=== PATIENT | male | born 1990 | race Caucasian/White ===

== ENCOUNTER 2017-07-03 01:44 | Emergency (ER) | payer BC ==
[~2017-07-03] VITALS: Ht 175.3 cm; Wt 70.8 kg
[2017-07-03] MEDS ORDERED: ONDANSETRON HCL/PF 4 MG/2 ML VIAL ONE (01:48)
[2017-07-03] MEDS ORDERED: MORPHINE SULFATE INJ 4 MG/ML DISP.SYRIN ONE (01:48)
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
--- NOTE | 2017-07-03 01:52 | NUR ---
MD MANLEY AT BED SIDE FOR EVAL
--- NOTE | 2017-07-03 01:54 | NUR ---
URINE SAMPLE OBATINED AND SENT TO LAB
--- NOTE | 2017-07-03 01:55 | NUR ---
20G RIGHT HAND IV STARTED, BLOOD SAMPLE OBTAINED AND SENT TO LAB. MEDICATED PT ORDERED
[2017-07-03] MEDS ORDERED: IV NS 0.9% 1,000 ML BAG IV ONE (02:00)
[2017-07-03] MEDS ORDERED: MORPHINE SULFATE INJ 2 MG/ML DISP.SYRIN IV ONE (02:00)
[2017-07-03] MEDS ORDERED: ONDANSETRON HCL/PF 4 MG/2 ML VIAL IVP ONE (02:00)
--- NOTE | 2017-07-03 02:03 | NUR ---
PT TRANSPORTED TO CT VIA GURNEY BY RADIOLOGY TEAM
[2017-07-03 02:05] LABS: APPEARANCE,URINE SL CLOUDY (CLEAR); BASOPHILS # (AUTO) 0.1 /CMM (0.0-0.2); BASOPHILS % (AUTO) 0.8 % (0.0-2.0); BILIRUBIN,URINE NEGATIVE (NEGATIVE); BLOOD, URINE 3+ Ery/uL (NEGATIVE); COLOR,URINE YELLOW (YELLOW); EOSINOPHILS # (AUTO) 0.2 /CMM (0.0-0.7); EOSINOPHILS % (AUTO) 2.2 % (0.0-6.0); HEMATOCRIT 42 % (39-51); HEMOGLOBIN 14.3 g/dL (13.5-17.5); KETONES,URINE NEGATIVE (NEGATIVE); LEUKOCYTE ESTERASE ,URINE NEGATIVE (NEGATIVE); LYMPHOCYTES # (AUTO) 3.8 /CMM (0.8-4.8); MEAN CORPUSCULAR HEMOGLOBIN 32 PG (26.0-33.0); MEAN CORPUSCULAR HGB CONC 34 g/dl (31.0-36.0); MEAN CORPUSCULAR VOLUME 93 fL (80-96); MONOCYTES # (AUTO) 0.7 /CMM (0.1-1.30); MONOCYTES % (AUTO) 7.6 % (2.0-12.0); NEUTROPHILS # (AUTO) 4.9 /CMM (1.8-8.9); NEUTROPHILS % (AUTO) 50.4 % (43.0-81.0); NITRITE, URINE NEGATIVE (NEGATIVE); PLATELET COUNT (AUTO) 264 /CMM (150-450); PROTEIN,URINE NEGATIVE (NEGATIVE); RED BLOOD CELL COUNT(AUTO) 4.51 MIL/uL (4.5-6.0); UGLUCOSE NEGATIVE (NEGATIVE); UROBILINOGEN,URINE 0.2 EU/dL (0.2); WHITE BLOOD COUNT (AUTO) 9.7 K/uL (4.3-11.0)
[2017-07-03 02:19] LABS: BACTERIA,URINE None seen /HPF (None Seen); MUCUS,URINE Few /LPF (None Seen); RBC,URINE 81-100 /HPF (0-2); SQUAMOUS EPITHELIAL CELL,UR Rare /HPF (None Seen); WBC,URINE NONE SEEN /HPF (0-3)
[2017-07-03 02:32] LABS: ALBUMIN 4.2 g/dL (3.4-5.0); BILIRUBIN,DIRECT 0.1 mg/dL (0.0-0.2); BILIRUBIN,TOTAL 0.4 mg/dL (0.2-1.0); CALCIUM, SERUM 9.2 mg/dL (8.5-10.1); CREATININE 0.9 mg/dL (0.6-1.3); POTASSIUM 4.2 mmol/L (3.5-5.1)
[2017-07-03] MEDS ORDERED: KETOROLAC TROMETHAMINE INJ 30 MG/ML VIAL IV ONE (03:00)
[2017-07-03] MEDS ORDERED: KETOROLAC TROMETHAMINE INJ 30 MG/ML VIAL ONE (03:01)
[2017-07-03 03:32] VITALS: BP 125/89
--- NOTE | 2017-07-03 03:33 | NUR ---
Patient discharged to home in stable condition. Written and verbal after care instructions given. Patient verbalizes understanding of instruction.IV removed. Catheter intact and site benign. Pressure and 4x4 applied to site. No bleeding noted. PT ambulatory with a steady gait VITAL SIGNS WITHIN NORMAL LIMITS.
== END 2017-07-03 03:32 | disposition home or self-care (01) ==
LOC: ER 01:46
DX: N20.0 Calculus of kidney (principal); K85.90 Acute pancreatitis without necrosis or infection, unspecified; Z87.442 Personal history of urinary calculi
CPT/HCPCS: 36415; 71250-TC; 80048-TC; 80076-TC; 81000-TC; 83690-TC; 85025-TC; A4606; J1885; J2270; J2405; J7030; Z7610

== ENCOUNTER 2021-01-16 11:56 | Emergency (ER) | payer SELFPAY ==
[~2021-01-16] VITALS: Ht 182.9 cm; Wt 81.6 kg
[2021-01-16] MEDS ORDERED: FENTANYL PF 100MCG/2ML AMPUL ONE ×2 (12:20→14:16)
[2021-01-16] MEDS ORDERED: FENTANYL PF 100MCG/2ML AMPUL IV ONE ×2 (12:30→14:00)
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
--- NOTE | 2021-01-16 14:32 | NUR ---
Patient discharged to home in stable condition. Written and verbal after care instructions given. Patient verbalizes understanding of instruction. Pt ambulatory with a steady gait
[2021-01-16] MEDS ORDERED: HYDR-4303 PO (14:42)
[2021-01-16 15:34] VITALS: BP 133/73
== END 2021-01-16 15:35 | disposition home or self-care (01) ==
LOC: ER 12:12
DX: S52.592A Other fractures of lower end of left radius, initial encounter for closed fracture (principal); S52.612A Displaced fracture of left ulna styloid process, initial encounter for closed fracture; Z87.442 Personal history of urinary calculi; W18.39XA Other fall on same level, initial encounter; Y93.89 Activity, other specified; Y92.89 Other specified places as the place of occurrence of the external cause; Y99.8 Other external cause status
CPT/HCPCS: 29125; 73110; 96374; 96376; 99284; J3010 ×2

== ENCOUNTER 2021-01-23 10:00 | Outpatient (CLI) | payer SELFPAY ==
[~2021-01-23 10:00] MED LIST: HYDR-4303 PO
[2021-01-24] MEDS ORDERED: HYDR-3972 PO (13:58)
[2021-01-25] MEDS ORDERED: BUPIVACAINE 0.5 % PF 150 MG/30 ML VIAL ONE (10:54)
[2021-01-25] MEDS ORDERED: BACITRACIN 50000 UNITS/VIAL ONE (10:55)
== END 2021-01-23 23:59 | disposition home or self-care (01) ==
LOC: LAB 10:00
PROVIDERS: ATTEND Specialist
DX: Z01.812 Encounter for preprocedural laboratory examination (principal); Z20.822 Contact with and (suspected) exposure to COVID-19
CPT/HCPCS: 87426; C9803; U0003; J3490

== ENCOUNTER 2021-01-24 10:39 | Inpatient (IN) | payer MEDICAID ==
[~2021-01-24] VITALS: Ht 182.9 cm; Wt 79.8 kg
--- NOTE | 2021-01-24 10:39 | NUR ---
PT BIB SELF C/O WORSENING PAIN IN FRACTURE SITE L ARM. PT IS AAOX4, NOT IN RESPIRATORY DISTRESS, V/S STABLE, KEPT RESTED AND COMFORTABLE. WILL CONTINUE TO MONITOR.
--- NOTE | 2021-01-24 11:27 | NUR ---
SEEN AND EXAMINED BY .
--- NOTE | 2021-01-24 11:35 | NUR ---
CRITICAL CARE UNIT NURSE AT BEDSIDE FOR XRAY.
--- NOTE | 2021-01-24 11:40 | NUR ---
ER PHLEB AT BEDSIDE FOR BLOOD DRAW.
[2021-01-24 11:56] LABS: CALCIUM, SERUM 9.1 mg/dL (8.5-10.1); CREATININE 0.9 mg/dL (0.6-1.3); POTASSIUM 4.3 mmol/L (3.5-5.1)
--- NOTE | 2021-01-24 12:57 | NUR ---
PAGED [facility].
--- NOTE | 2021-01-24 12:57 | NUR ---
CALLED NURSING SUP FOR M/S BED.
--- NOTE | 2021-01-24 13:33 | NUR ---
IV LINE ESTABLISHED BLOOD DRAWN AND SENT TO LAB.
[2021-01-24] MEDS ORDERED: HYDROCODONE/APAP 5/325MG TABLET ONE (13:35)
[2021-01-24] MEDS ORDERED: HYDR-3972 PO (13:58)
[2021-01-24] MEDS ORDERED: HYDROCODONE/APAP 5/325MG TABLET PO ONE (14:00)
[2021-01-24] MEDS ORDERED: MORPHINE SULFATE INJ 2 MG/ML DISP.SYRIN IV PRN (14:00)
[2021-01-24] MEDS ORDERED: Z GUARD REMEDY 2 OZ OINT TP PRN (14:00)
[2021-01-24] MEDS ORDERED: HYDROCODONE/APAP 5/325MG TABLET PO PRN (14:00)
[2021-01-24] MEDS ORDERED: ONDANSETRON HCL/PF 4 MG/2 ML VIAL IVP PRN (14:00)
[2021-01-24] MEDS ORDERED: MAG HYDROX/AL HYDROX/SIMETH 30 ML UDC PO PRN (14:00)
[2021-01-24] MEDS ORDERED: MAGNESIUM HYDROXIDE 30 ML UDC PO PRN (14:00)
[2021-01-24] MEDS ORDERED: ACETAMINOPHEN 325 MG TABLET PO PRN (14:00)
--- NOTE | 2021-01-24 14:39 | NUR ---
NURSING SUP GAVE [id number].
--- NOTE | 2021-01-24 15:08 | NUR ---
REPORT GIVEN TO AMOR NARANJO FOR AVRIL.
--- NOTE | 2021-01-24 16:00 | NUR ---
ms rn received a new admission from er, 30 year old male,awake,alert,oriented x4, not in any form of distress, respirations even and unlabored,no sob noted. left arm bandage and covered w/ partial cast, denies pain at this time, will monitor patient.
--- NOTE | 2021-01-24 18:57 | NUR ---
ms rn on bed, no distress noted, will be npo post midnight for surgery of left arm in am.will endorsed to cnc field service engineer for damon.
--- NOTE | 2021-01-24 19:10 | NUR ---
MS RN OPENING NOTES: RECEIVED PATIENT IN BED, AWAKE, A/O X4. NO S/S OF DISTRESS NOTED. CALL LIGHT WITHIN REACH. BED IN LOWEST AND LOCKED POSITION. WITH LEFT ARM DRESSING ON, WITH GOOD COLOR AND WARM TO TOUCH.
[2021-01-24 20:00] VITALS: BP 133/61
[2021-01-25 06:34] LABS: BASOPHILS % (AUTO) 0.6 % (0.0-2.0); EOSINOPHILS % (AUTO) 3.5 % (0.0-6.0); HEMATOCRIT 43 % (39-51); HEMOGLOBIN 14.3 g/dL (13.5-17.5); LYMPHOCYTES # (AUTO) 2.3 /CMM (0.8-4.8); LYMPHOCYTES % (AUTO) 38.9 % (20.0-44.0); MEAN CORPUSCULAR HGB CONC 34 g/dl (31.0-36.0); MEAN CORPUSCULAR VOLUME 92 fL (80-96); MONOCYTES # (AUTO) 0.5 /CMM (0.1-1.30); MONOCYTES % (AUTO) 8.1 % (2.0-12.0); NEUTROPHILS # (AUTO) 2.9 /CMM (1.8-8.9); NEUTROPHILS % (AUTO) 48.9 % (43.0-81.0); PLATELET COUNT (AUTO) 221 /CMM (150-450); RED BLOOD CELL COUNT(AUTO) 4.63 MIL/uL (4.5-6.0); WHITE BLOOD COUNT (AUTO) 5.9 K/uL (4.3-11.0)
[2021-01-25 06:54] LABS: CALCIUM, SERUM 9.4 mg/dL (8.5-10.1); CREATININE 0.8 mg/dL (0.6-1.3); PHOSPHORUS 4.8 mg/dL (2.5-4.9); POTASSIUM 4.1 mmol/L (3.5-5.1)
--- NOTE | 2021-01-25 07:50 | NUR ---
MS RN OPENING NOTE PT RECEIVED IN BED, ASLEEP BUT AROUSABLE AND RESPONSIVE. PT IS A/O X4, VERBAL, SOMALI SPEAKING AND ABLE TO MAKE NEEDS KNOWN WITH NO C/O PAIN OR S/SX OF ACUTE DISTRESS NOTED AT THIS TIME. PT IS ON ROOM AIR WITH NO S/SX OF RESPIRATORY DISTRESS OR SOB NOTED. HAS AN IV ACCESS ON RIGHT AC G#18 SL, PATENT, INTACT AND FLUSHING WELL WITH NO S/SX OF INFECTION, INFILTRATION OR IRRITATION. PT IS AMBULATORY WITH STEADY GAIT AND CAN GO TO THE BATHROOM INDEPENDENTLY. SCHEDULED FOR ORIF TODAY. SAFETY MEASURES IN PLACE: BED IS IN LOWEST, LOCKED POSITION WITH BOTH UPPER SIDE RAILS UP X 2. CALL LIGHT PLACED WITHIN REACH. WILL CONTINUE TO MONITOR.
--- NOTE | 2021-01-25 10:15 | NUR ---
MS RN NOTE: SURGERY PT PICKED UP FOR ORIF ON LEFT ARM. CONSENTS FOR SURGERY, ANESTHESIA, BLOOD TRANSFUSION SIGNED, PLACED IN CHART ALONG WITH PRE-OP CHECKLIST. PT LEFT UNIT AT 10:10AM.
[2021-01-25] MEDS ORDERED: FENTANYL PF 100MCG/2ML AMPUL ONE (10:52)
[2021-01-25] MEDS ORDERED: MIDAZOLAM HCL 2 MG/2ML VIAL ONE (10:53)
[2021-01-25] MEDS ORDERED: HYDROMORPHONE INJ 2 MG/ML DISP.SYRIN ONE (12:11)
[2021-01-25] MEDS ORDERED: KETOROLAC TROMETHAMINE INJ 30 MG/ML VIAL ONE (12:24)
[2021-01-25] MEDS ORDERED: HYDROCODONE/APAP 5/325MG TABLET ONE (12:44)
[2021-01-25] MEDS ORDERED: HYDROCODONE/APAP 5/325MG TABLET PO PRN ×2 (13:00)
--- NOTE | 2021-01-25 17:00 | NUR ---
MS RN NOTE: PAIN PT C/O LEFT ARM FRACTURE PAIN, DESCRIBED ACHING, RATED 8/10. NORCO 5-325MG 2 TAB PO PRN GIVEN PER PT'S REQUEST. WILL CONTINUE TO MONITOR.
--- NOTE | 2021-01-25 17:20 | NUR ---
MS BOIL OFF WORKER NOTE PT CLEARED FOR DISCHARGE. PT IS A/O X 4, MONGOLIAN SPEAKING, VERBAL ABLE TO MAKE NEEDS KNOWN WITH NO C/O PAIN OR S/SX OF ACUTE DISTRESS AT THIS TIME. PT IS MEDICALLY STABLE. VSS. PT IS ON ROOM AIR WITH NO C/O RESPIRATORY DISTRESS OR SOB AT THIS TIME. PT HAS A SLING ON LEFT ARM. LEFT ARM NOTED WITH GOOD CIRCULATION, < 3 SECONDS CAPILLARY REFILL, NO TINGLING OR PAIN REPORTED. IV ACCESS REMOVED. ID BAND/ARM BAND REMOVED. BELONGINGS LIST, DISCHARGE PAPERS AND PRESCRIPTION FOR MEDICATION SIGNED, WITNESSED, COPIED, AND GIVEN TO PT/FILED IN CHART. ALL CARE, NEEDS, MEDICATIONS AND TREATMENTS GIVEN ORDERED PER FACILITY PROTOCOL. DISCHARGE EDUCATION GIVEN TO PT WITH SUCCESSFUL RETURN DEMONSTRATION AND VERBALIZATION OF UNDERSTANDING. PT LEFT UNIT AT 17:13, AMBULATORY WITH STEADY GAIT, ACCOMPANIED BY ME TO THE LOBBY. PICKED UP BY DEMARCUS. CHARGE NURSE AND MD AWARE OF D/C.
== END 2021-01-25 17:14 | disposition home or self-care (01) | DRG 315 ==
LOC: ER 10:44 → MED 15:27
PROVIDERS: ADMIT Internal Medicine; ATTEND Internal Medicine
PROC: 0PSJ04Z Reposition Left Radius with Internal Fixation Device, Open Approach (ICD-10-PCS; principal; 2021-01-25)
DX: S52.502A Unspecified fracture of the lower end of left radius, initial encounter for closed fracture (principal); X58.XXXA Exposure to other specified factors, initial encounter; Y92.9 Unspecified place or not applicable; Z87.442 Personal history of urinary calculi; S52.602A Unspecified fracture of lower end of left ulna, initial encounter for closed fracture
CPT/HCPCS: 36415; 73090-TC; 80048-TC; 82550-TC; 83735-TC; 84100-TC; 85025-TC; 87081-TC; C9803; G0378; J0690; J1100; J1170; J1885; J2250; J2405; J2704; J2765; J3010; J3490